=== PATIENT | female | born 1995 | race Caucasian/White ===

== ENCOUNTER 2017-04-23 18:34 | Emergency (ER) | payer OTHER ==
[~2017-04-23] VITALS: Ht 154.9 cm; Wt 52.7 kg
[2017-04-23 19:19] VITALS: BP 121/77
== END 2017-04-23 19:57 | disposition home or self-care (01) ==
LOC: ED 19:51
DX: I88.8 Other nonspecific lymphadenitis (principal)
CPT/HCPCS: 99281